=== PATIENT | female | born 1955 | race Caucasian/White ===

== ENCOUNTER → 2024-02-20 08:43 | Outpatient (REF) | payer MEDICARE, OTHER, SELFPAY | LOC: RAD 08:43 | PROVIDERS: ATTENDING PHYSICIAN Internal Medicine Rheumatology | DX: M81.0 Age-related osteoporosis without current pathological fracture (principal) | CPT/HCPCS: 77080; 77081 ==

== ENCOUNTER → 2024-03-28 06:59 | Outpatient (REF) | payer MEDICARE, OTHER, SELFPAY | LOC: RAD 06:59 | PROVIDERS: ATTENDING PHYSICIAN Internal Medicine Gastroenterology; FAMILY PHYSICIAN Family Medicine | DX: K59.00 Constipation, unspecified (principal) | CPT/HCPCS: 74270 ==

== ENCOUNTER → 2024-08-02 11:39 | Outpatient (REF) | payer MEDICARE, OTHER, SELFPAY | LOC: HWRAD 11:39 | PROVIDERS: ATTENDING PHYSICIAN Physician Assistant | DX: M54.16 Radiculopathy, lumbar region (principal) | CPT/HCPCS: 72110 ==

== ENCOUNTER → 2024-08-08 06:37 | Outpatient (REF) | payer MEDICARE, OTHER, SELFPAY | LOC: MRI 06:37 | PROVIDERS: ATTENDING PHYSICIAN Physician Assistant; FAMILY PHYSICIAN Nurse Practitioner Acute Care | DX: M54.16 Radiculopathy, lumbar region (principal) | CPT/HCPCS: 72148 ==

== ENCOUNTER 2024-09-16 13:54 | Outpatient (RCR) | payer MEDICARE, OTHER, SELFPAY | END 2024-09-16 23:59 | disposition home or self-care (01) | LOC: RPT 13:54 | PROVIDERS: ATTENDING PHYSICIAN Student in an Organized Health Care Education/Training Program; PRIMARYCARE PHYSICIAN Nurse Practitioner Acute Care | DX: M48.062 Spinal stenosis, lumbar region with neurogenic claudication (principal); M48.061 Spinal stenosis, lumbar region without neurogenic claudication; M54.59 Other low back pain; Z73.6 Limitation of activities due to disability | CPT/HCPCS: 97010; 97110; 97112; 97162 ==

== ENCOUNTER → 2024-09-17 08:06 | Outpatient (REF) | payer MEDICARE, OTHER, SELFPAY | LOC: WDC 08:06 | PROVIDERS: ATTENDING PHYSICIAN Obstetrics & Gynecology | DX: Z12.31 Encounter for screening mammogram for malignant neoplasm of breast (principal) | CPT/HCPCS: 77063; 77067 ==

== ENCOUNTER 2024-10-01 16:20 | Outpatient (RCR) | payer MEDICARE, OTHER, SELFPAY | END 2024-10-01 23:59 | disposition home or self-care (01) | LOC: RPT 16:20 | PROVIDERS: ATTENDING PHYSICIAN Student in an Organized Health Care Education/Training Program; PRIMARYCARE PHYSICIAN Nurse Practitioner Acute Care | DX: M48.062 Spinal stenosis, lumbar region with neurogenic claudication (principal); M54.59 Other low back pain; Z73.6 Limitation of activities due to disability | CPT/HCPCS: 97010; 97110; 97530 ==

== ENCOUNTER 2024-10-14 06:54 | Outpatient (RCR) | payer MEDICARE, OTHER, SELFPAY | END 2024-10-14 23:59 | disposition home or self-care (01) | LOC: RPT 06:54 | PROVIDERS: ATTENDING PHYSICIAN Internal Medicine Gastroenterology; FAMILY PHYSICIAN Nurse Practitioner Acute Care | DX: K59.02 Outlet dysfunction constipation (principal); M62.89 Other specified disorders of muscle; R10.2 Pelvic and perineal pain; Z73.6 Limitation of activities due to disability; M54.50 Low back pain, unspecified | CPT/HCPCS: 97112; 97163; 97530 ==

== ENCOUNTER → 2025-03-27 15:40 | Outpatient (REF) | payer MEDICARE, OTHER, SELFPAY | LOC: RAD 15:40 | PROVIDERS: ATTENDING PHYSICIAN Family Medicine | DX: M54.2 Cervicalgia (principal); M25.512 Pain in left shoulder | CPT/HCPCS: 72052; 73030 ==

== ENCOUNTER → 2025-05-06 15:56 | Outpatient (REF) | payer MEDICARE, OTHER, SELFPAY | LOC: RAD 15:56 | PROVIDERS: ATTENDING PHYSICIAN Physician Assistant | DX: M54.16 Radiculopathy, lumbar region (principal); M79.604 Pain in right leg | CPT/HCPCS: 72110; 73564; 73590 ==

== ENCOUNTER 2025-05-21 11:10 | Outpatient (RCR) | payer MEDICARE, OTHER, SELFPAY | END 2025-05-21 23:59 | disposition home or self-care (01) | LOC: RPT 11:10 | PROVIDERS: ATTENDING PHYSICIAN Physician Assistant; FAMILY PHYSICIAN Nurse Practitioner Acute Care | DX: M54.16 Radiculopathy, lumbar region (principal); Z73.6 Limitation of activities due to disability; M62.81 Muscle weakness (generalized); M79.604 Pain in right leg; Z91.81 History of falling | CPT/HCPCS: 97010; 97110; 97112; 97162; 97530 ==

== ENCOUNTER 2025-06-25 11:46 | Outpatient (RCR) | payer MEDICARE, OTHER, SELFPAY | END 2025-06-25 23:59 | disposition home or self-care (01) | LOC: RPT 11:46 | PROVIDERS: ATTENDING PHYSICIAN Physician Assistant; FAMILY PHYSICIAN Nurse Practitioner Acute Care | DX: M54.16 Radiculopathy, lumbar region (principal); Z73.6 Limitation of activities due to disability; M62.81 Muscle weakness (generalized); M79.604 Pain in right leg; Z91.81 History of falling | CPT/HCPCS: 97010; 97110; 97112 ==

== ENCOUNTER 2025-07-24 10:57 | Outpatient (RCR) | payer MEDICARE, OTHER, SELFPAY | END 2025-07-24 23:59 | disposition home or self-care (01) | LOC: RPT 10:57 | PROVIDERS: ATTENDING PHYSICIAN Physician Assistant; FAMILY PHYSICIAN Nurse Practitioner Acute Care | DX: M54.16 Radiculopathy, lumbar region (principal); Z73.6 Limitation of activities due to disability; M62.81 Muscle weakness (generalized); M79.604 Pain in right leg; Z91.81 History of falling | CPT/HCPCS: 97010; 97110; 97530 ==

== ENCOUNTER 2025-08-25 06:44 | Outpatient (RCR) | payer MEDICARE, OTHER, SELFPAY | END 2025-08-25 23:59 | disposition home or self-care (01) | LOC: RPT 06:44 | PROVIDERS: ATTENDING PHYSICIAN Physician Assistant; FAMILY PHYSICIAN Nurse Practitioner Acute Care | DX: M54.16 Radiculopathy, lumbar region (principal); Z73.6 Limitation of activities due to disability; M62.81 Muscle weakness (generalized); M79.604 Pain in right leg; Z91.81 History of falling | CPT/HCPCS: 97010; 97110; 97530 ==

== ENCOUNTER → 2025-09-03 14:55 | Outpatient (REF) | payer MEDICARE, OTHER, SELFPAY | LOC: RCS 14:55 | PROVIDERS: ATTENDING PHYSICIAN Family Medicine | DX: R07.9 Chest pain, unspecified (principal) | CPT/HCPCS: 93017 ==

== ENCOUNTER 2025-09-12 07:01 | Outpatient (RCR) | payer MEDICARE, OTHER, SELFPAY | END 2025-09-15 23:59 | disposition home or self-care (01) | LOC: RPT 07:01 | PROVIDERS: ATTENDING PHYSICIAN Physician Assistant; FAMILY PHYSICIAN Nurse Practitioner Acute Care | DX: M54.16 Radiculopathy, lumbar region (principal); Z73.6 Limitation of activities due to disability; M62.81 Muscle weakness (generalized) | CPT/HCPCS: 97110; 97530 ==

== ENCOUNTER → 2025-09-25 09:32 | Outpatient (REF) | payer MEDICARE, OTHER, SELFPAY | LOC: RCS 09:32 | PROVIDERS: ATTENDING PHYSICIAN Family Medicine | DX: R53.83 Other fatigue (principal); R07.89 Other chest pain | CPT/HCPCS: 93306 ==